=== PATIENT | female | born 1985 | race Caucasian/White ===

== ENCOUNTER 2020-05-23 14:17 | Emergency (ER) | payer BC ==
--- NOTE | 2020-05-23 14:58 | EDM.PDOC ---
ED HPI GENERAL MEDICAL PROBLEM - General Chief Complaint: Lower Extremity Injury/Pain Stated Complaint: left ankle injury Time Seen by Provider: 05/23/20 14:40 Source of Information: Reports: Patient History Limitations: Reports: No Limitations - History of Present Illness INITIAL COMMENTS - FREE TEXT/NARRATIVE: She is seen for evaluation of injury to her left foot. Fell off a hover board last night. She thinks the foot and ankle inverted, but not sure of the exact mechanism. Pain in the mid foot and lateral ankle. Increased pain with weight bearing. No previous injury to this foot. She denies any other injury. 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 No discoloration. Mild tenderness in the anterior lateral ankle. No other tenderness. No palpable defect. Decreased dorsi and plantar flexion secondary to foot pain. Left foot: Moderate diffuse swelling and mild ecchymosis in the dorsal foot. Sharp tenderness over the mid shaft of the 2nd, 3rd and 4th metatarsals dorsally. Moderate tenderness diffusely over the remainder of the dorsal foot. Good movement of all the toes. Right Ankle. No swelling or deformity. No discoloration. No tenderness. Full range of motion without pain. Right foot: No swelling or deformity. No discoloration. No tenderness. Full range of motion without pain. Exam Limited By: No Limitations General Appearance: Alert, WD/WN, No Apparent Distress Course - Vital Signs Last Recorded V/S: Last Vital Signs Temp 36.8 C 05/23/20 14:19 Pulse 104 H 05/23/20 14:19 Resp 20 05/23/20 14:19 BP 134/70 05/23/20 14:19 Pulse Ox 100 05/23/20 14:19 - Orders/Labs/Meds Orders: Active Orders 24 hr Category Date Time Status Ankle Min 3V Lt [CR] Stat Exams 05/23/20 14:27 Taken - Radiology Interpretation Free Text/Narrative:: X-ray of the left ankle shows displaced mid shat fractures of the 3rd and 4th metatarsals and nondisplaced fracture of the second metatarsal. Departure - Departure Time of Disposition: 15:00 Disposition: Home, Self-Care 01 Condition: Good Clinical Impression: Fracture, metacarpal shaft Qualifiers: Encounter type: initial encounter Metacarpal bone: unspecified metacarpal Fracture type: closed Fracture alignment: displaced Qualified Code(s): S62.329A - Displaced fracture of shaft of unspecified metacarpal bone, initial encounter for closed fracture - Discharge Information *PRESCRIPTION DRUG MONITORING PROGRAM REVIEWED*: Not Applicable *COPY OF PRESCRIPTION DRUG MONITORING REPORT IN PATIENT DEBBIE: Not Applicable Instructions: Metatarsal Fracture Referrals: Anay Holley PA [Primary Care Provider] - Forms: ED Department Discharge Additional Instructions: Keep cast boot on except for washing the foot. Partial weight bearing with crutches if pain free. Ice the foot for 15 minutes 3-4 times daily. Tylenol or Advil as needed for pain. Follow up with orthopedics this week. Call facility of your choose on Sunday to schedule an appointment - Problem List & Annotations (1) Fracture, metacarpal shaft SNOMED Code(s): 01521139 Code(s): S62.329A - DISP FX OF SHAFT OF UNSP METACARPAL BONE, INIT FOR CLOS FX Status: Acute Qualifiers: Encounter type: initial encounter Metacarpal bone: unspecified metacarpal Fracture type: closed Fracture alignment: displaced Qualified Code(s): S62.329A - Displaced fracture of shaft of unspecified metacarpal bone, initial encounter for closed fracture - Problem List Review Problem List Initiated/Reviewed/Updated: Yes - My Orders Last 24 Hours: My Active Orders 05/23/20 14:27 Ankle Min 3V Lt [CR] Stat - Assessment/Plan Last 24 Hours: My Active Orders 05/23/20 14:27 Ankle Min 3V Lt [CR] Stat Plan: Discussed findings and treatment options. She is place in an equalizer boot. Keep cast boot on except for washing the foot. Partial weight bearing with crutches if pain free. Ice the foot for 15 minutes 3-4 times daily. Tylenol or Advil as needed for pain. Follow up with orthopedics this week.
[2020-05-23 16:55] VITALS: BP 134/70; PULSE 104
== END 2020-05-23 15:15 | disposition home or self-care (01) ==
LOC: LL.ED 14:17
DX: S62.323A Displaced fracture of shaft of third metacarpal bone, left hand, initial encounter for closed fracture (principal); S62.325A Displaced fracture of shaft of fourth metacarpal bone, left hand, initial encounter for closed fracture; S62.351A Nondisplaced fracture of shaft of second metacarpal bone, left hand, initial encounter for closed fracture; V00.848A Other accident with standing micro-mobility pedestrian conveyance, initial encounter
CPT/HCPCS: 73610-LT; 99283; 99284